=== PATIENT | female | born 2005 | race Caucasian/White ===

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

== ENCOUNTER 2024-01-29 10:17 | Emergency (ER) | payer BC, MEDICAID | END 2024-01-29 12:26 | disposition home or self-care (01) | LOC: JP.ED 10:17 | DX: J03.90 Acute tonsillitis, unspecified (principal); Z88.8 Allergy status to other drugs, medicaments and biological substances; Z79.899 Other long term (current) drug therapy | CPT/HCPCS: 87651-QW; 99283 ==

== ENCOUNTER 2024-03-08 12:18 | Emergency (ER) | payer MEDICAID ==
[2024-03-08 14:09] LABS: BASOPHILS ABSOLUTE AUTO 0.03 K/uL (0.00-0.10); BASOPHILS PERCENT AUTO 0.4 % (0.1-1.3); EOSINOPHILS ABSOLUTE AUTO 0.11 K/uL (0.00-0.40); EOSINOPHILS PERCENT AUTO 1.5 % (0.0-5.4); HEMATOCRIT 36.9 % (34.3-46.0); IMMATURE GRAN ABSOLUTE AUTO 0.02 K/uL (0.00-0.23); IMMATURE GRAN PERCENT AUTO 0.3 % (0.0-0.7); LYMPHOCYTES ABSOLUTE AUTO 2.62 K/uL (0.8-3.3); LYMPHOCYTES PERCENT AUTO 35.8 % (11.4-47.7); MEAN CORPUSCULAR HEMOGLOBIN 32.1 pg (31.6-35.5); MEAN CORPUSCULAR HGB CONC 35.2 g/dL (31.6-35.5); MEAN CORPUSCULAR VOLUME 91.1 fL (81.4-99.0); MONOCYTES ABSOLUTE AUTO 0.52 K/uL (0.20-0.90); MONOCYTES PERCENT AUTO 7.1 % (3.3-12.6); NEUTROPHILS ABSOLUTE AUTO 4.01 K/uL (1.0-7.6); NEUTROPHILS PERCENT AUTO 54.9 % (40.0-78.1); PLATELET COUNT,PLT 220 K/uL (130-375); RED BLOOD CELL COUNT 4.05 M/uL (3.77-5.24); WHITE BLOOD CELL COUNT,WBC 7.3 K/uL (3.2-11.0)
== END 2024-03-08 15:02 | disposition home or self-care (01) ==
LOC: JP.ED 12:18
DX: K64.9 Unspecified hemorrhoids (principal); Z88.8 Allergy status to other drugs, medicaments and biological substances
CPT/HCPCS: 36415; 85025; 99283

== ENCOUNTER 2025-02-18 14:50 | Emergency (ER) | payer MEDICAID ==
[2025-02-18 16:39] LABS: BASOPHILS ABSOLUTE AUTO 0.05 K/uL (0.00-0.10); BASOPHILS PERCENT AUTO 0.5 % (0.1-1.3); EOSINOPHILS ABSOLUTE AUTO 0.15 K/uL (0.00-0.40); EOSINOPHILS PERCENT AUTO 1.6 % (0.0-5.4); IMMATURE GRAN PERCENT AUTO 0.2 % (0.0-0.7); LYMPHOCYTES ABSOLUTE AUTO 3.39 K/uL (0.8-3.3); LYMPHOCYTES PERCENT AUTO 36.7 % (11.4-47.7); MONOCYTES ABSOLUTE AUTO 0.52 K/uL (0.20-0.90); MONOCYTES PERCENT AUTO 5.6 % (3.3-12.6); NEUTROPHILS ABSOLUTE AUTO 5.11 K/uL (1.0-7.6); NEUTROPHILS PERCENT AUTO 55.4 % (40.0-78.1); PLATELET COUNT,PLT 226 K/uL (130-375); RED BLOOD CELL COUNT 4.15 M/uL (3.77-5.24); WHITE BLOOD CELL COUNT,WBC 9.2 K/uL (3.2-11.0)
[2025-02-18 16:40] LABS: IMMATURE GRAN ABSOLUTE AUTO 0.02 K/uL (0.00-0.23)
[2025-02-18 17:03] LABS: A/G RATIO 1.2 (1.2-2.2); ALANINE AMINOTRANSFERASE,ALT 23 U/L (12-78); ASPARTATE AMNIOTRANSFERASE,AST 18 U/L (15-37); BILIRUBIN TOTAL 0.3 mg/dL (0.2-1.0); BLOOD UREA NITROGEN,BUN 7 mg/dL (7-18); CARBON DIOXIDE,CO2 28 mmol/L (21-32); CHLORIDE,CL 102 mmol/L (100-108); CREATININE 0.7 mg/dL (0.6-1.0); EST CRCL DRUG DOSING (CG) 115.36 mL/min; ESTIMATED GFR 127 mL/min (>60); GLUCOSE RANDOM 92 mg/dL (74-106); POTASSIUM,K 3.7 mmol/L (3.6-5.2); PROTEIN TOTAL,TP 7.6 g/dL (6.4-8.2); SODIUM,NA 138 mmol/L (140-148)
[2025-02-18 17:04] LABS: TROPONIN I HIGH SENSITIVITY < 4.0 pg/mL (<=60.3)
== END 2025-02-18 18:06 | disposition home or self-care (01) ==
LOC: JP.ED 14:50
DX: R07.9 Chest pain, unspecified (principal); E03.9 Hypothyroidism, unspecified; Z88.5 Allergy status to narcotic agent; Z88.8 Allergy status to other drugs, medicaments and biological substances; Z79.899 Other long term (current) drug therapy
CPT/HCPCS: 36415; 80053; 84443; 84484; 85025; 93010; 99284; 99285